=== PATIENT | male | born 1955 | race Asian ===

== ENCOUNTER 2024-08-27 16:47 | Emergency (ER) | payer MEDICARE, MEDICAID ==
[~2024-08-27] VITALS: Ht 170.2 cm; Wt 72.7 kg
[2024-08-27 17:02] VITALS: BP 130/67; PULSE 62; RESP 18; TEMP 98.2; O2SAT 99
[2024-08-27] MEDS ORDERED: DAPA5TAB PO (17:06)
[2024-08-27] MEDS ORDERED: AMLO-343 PO (17:06)
[2024-08-27] MEDS ORDERED: LIDO-57 TP (19:55)
[2024-08-27] MEDS ORDERED: ACYC-138 PO (19:55)
[2024-08-27] MEDS ORDERED: TRAM50TA5 PO (19:55)
[2024-08-27] MEDS: LIDOCAINE 5% TRANSDERMAL PATCH TD ONE (20:07)
== END 2024-08-27 20:08 | disposition home or self-care (01) ==
LOC: EMS 16:50
DX: B02.9 Zoster without complications (principal); E11.9 Type 2 diabetes mellitus without complications; I10 Essential (primary) hypertension; E78.00 Pure hypercholesterolemia, unspecified; Z79.84 Long term (current) use of oral hypoglycemic drugs; Z79.899 Other long term (current) drug therapy
CPT/HCPCS: 99283